=== PATIENT | male | born 1965 | race African-American/Black ===

== ENCOUNTER 2019-04-29 06:30 | Emergency (ER) | payer SELFPAY ==
[~2019-04-29] VITALS: Ht 188 cm; Wt 88.0 kg
[2019-04-29 06:36] VITALS: BP 125/72
== END 2019-04-29 20:54 | disposition left against medical advice (07) ==
LOC: ER 06:51
DX: R68.89 Other general symptoms and signs (principal); Z53.21 Procedure and treatment not carried out due to patient leaving prior to being seen by health care provider